=== PATIENT | male | born 1950 ===

== ENCOUNTER → 2017-10-13 | Outpatient (CLI) | payer OTHER | END | disposition home or self-care (01) | LOC: MRI 10:23 | DX: M17.11 Unilateral primary osteoarthritis, right knee (principal); M17.12 Unilateral primary osteoarthritis, left knee | CPT/HCPCS: 73718 ==

== ENCOUNTER 2018-05-24 10:15 | Outpatient (CLI) | payer OTHER | END 2018-05-24 13:57 | disposition home or self-care (01) | LOC: TOM 10:15 | DX: J98.11 Atelectasis (principal); J45.909 Unspecified asthma, uncomplicated; I10 Essential (primary) hypertension ==